=== PATIENT | male | born 1975 | race Caucasian/White ===

== ENCOUNTER 2020-12-23 19:59 | Emergency (ER) | payer MEDICARE ==
[2020-12-23] MEDS ORDERED: IBUPROFEN600 MG PO (20:47)
[2020-12-23] MEDS ORDERED: AUGMENTIN 875-1 EACH PO (20:47)
[2020-12-23] MEDS ORDERED: BACTROBAN OINT22 GM EXT (20:47)
== END 2020-12-23 21:26 | disposition home or self-care (01) ==
LOC: ER1 19:59
DX: S01.551A Open bite of lip, initial encounter (principal); Z23 Encounter for immunization; W54.0XXA Bitten by dog, initial encounter; Y92.009 Unspecified place in unspecified non-institutional (private) residence as the place of occurrence of the external cause
CPT/HCPCS: 40650; 90471; 90715; 99282